=== PATIENT | male | born 1965 | race Native Hawaiian/Other Pacific Islander ===

== ENCOUNTER 2021-08-15 11:14 | Outpatient (CLI) | payer BC ==
[2021-08-15 11:33] LABS: PLATELET COUNT 272 K/uL (142-355)
== END 2021-08-15 20:11 | disposition home or self-care (01) ==
LOC: LABW 11:14
PROVIDERS: ATTEND Nurse Practitioner Family
DX: Z20.822 Contact with and (suspected) exposure to COVID-19 (principal)
CPT/HCPCS: 36415; 80053; 82728; 85027; 85379; 86140